=== PATIENT | female | born 1990 | race Caucasian/White ===

== ENCOUNTER 2017-08-20 15:06 | Emergency (ER) | payer MEDICAID ==
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
[2017-08-20] MEDS ORDERED: PERCOCET 5/325 PO ONE (20:08)
[2017-08-20] MEDS ORDERED: VALIUM PO ONE (20:08)
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
[2017-08-20] MEDS ORDERED: ZOFRAN ODT PO ONE (22:28)
[2017-08-20 23:42] VITALS: BP 118/70
== END 2017-08-21 00:50 | disposition other institution (70) ==
LOC: ED 15:06
DX: S02.19XA Other fracture of base of skull, initial encounter for closed fracture (principal); S16.1XXA Strain of muscle, fascia and tendon at neck level, initial encounter; S70.12XA Contusion of left thigh, initial encounter; G44.319 Acute post-traumatic headache, not intractable; R07.89 Other chest pain; M79.1 Myalgia; M25.50 Pain in unspecified joint; V44.5XXA Car driver injured in collision with heavy transport vehicle or bus in traffic accident, initial encounter; Y93.9 Activity, unspecified; Y99.9 Unspecified external cause status; Y92.410 Unspecified street and highway as the place of occurrence of the external cause
CPT/HCPCS: 70450; 71020; 71110; 72170; Q0162

== ENCOUNTER 2019-08-20 16:09 | Emergency (ER) | payer OTHER ==
--- NOTE | 2019-08-20 16:23 | Event Note ---
ED Screening Note Date of service: 08/20/19 Time: 16:19 ED Screening Note: This is a 29 y.o. F. that presents to the ER with chest pain and tingling in left arm since awakening. PMH of migraines and PCOS + nausea and SOB - fever, chills, cough, n/v She went to her PCP today and sent to ER for further evaluation. This initial assessment/diagnostic orders/clinical plan/treatment(s) is/are subject to change based on patients health status, clinical progression and re- assessment by fellow clinical providers in the ED. Further treatment and workup at subsequent clinical providers discretion. Patient/guardian urged not to elope from the ED as their condition may be serious if not clinically assessed and managed. Initial orders include: EKG, Labs, & CXR
[2019-08-20] MEDS ORDERED: ASPIRIN 325 MG TAB PO ONE (16:24)
[2019-08-20 16:56] LABS: Basophils # (Auto) 0.1 K/mm3 (0.0-0.1); Eosinophils # (Auto) 0.1 K/mm3 (0.0-0.4); Eosinophils % (Auto) 0.5 % (0.0-4.3); Hematocrit 41.3 % (30.3-42.9); Hemoglobin 13.6 gm/dl (10.1-14.3); Lymphocytes # (Auto) 2.7 K/mm3 (1.2-5.4); Lymphocytes % (Auto) 21.8 % (13.4-35.0); Mean Corpuscular HGB Conc 33 % (30-34); Mean Corpuscular Volume 80 fl (79-97); Monocytes # (Auto) 0.7 K/mm3 (0.0-0.8); Monocytes % (Auto) 5.5 % (0.0-7.3); Platelet Count 274 K/mm3 (140-440); Red Blood Count 5.15 M/mm3 (3.65-5.03); Red Cell Distribution Width 14.4 % (13.2-15.2)
[2019-08-20] MEDS ORDERED: cloNIDine 0.1 MG TAB PO ONE (17:02)
--- NOTE | 2019-08-20 17:11 | Emergency Department Report ---
HPI - General Chief Complaint: Chest Pain Time Seen by Provider: 08/20/19 16:19 - HPI HPI: 29 YO FEMALE COME TO ER CO L SIDED CP RAD DOWN HER LA WHILE AT WORK TODAY. SHE SAW HER PCP/REHABILITATION PSYCHOLOGIST WHO TOLD HER TO COME TO ER IN THE EVENT SHE WAS HAVING A CA; SHE'D BE IN A BETTER PLACE. PAIN IS LIKE AN "ELEPHANT," NO SOB, RAD TO LA. 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 NO N/V/DIAPHORESIS. DENIES THAT MOVEMENT MAKES BETTER DENIES COUGH/FEVER/CHILLS/N/V/DIARRHEA NO BACK PAIN/ NO DYSURIA NOT SEXUALLY ACTIVE NO VAG DC SHE HAS NO CARDIAC HISTORY. SHE IS ANXIOUS AND CONCERNED SHES HAVING A STROKE OR AMI - BECAUSE HER MOTHER DID PMH MIGRAINES ANEMAI PCOS PSH HERNIA T/A D/C LMP 3 W AGO HOME RX BCP-NOT SEXUALLY ACTIVE FE- SHE DOES NOT TAKE BECAUSE "LAZY" - SHE WAS ONCE TOLD SHE HAD ANEMIA DENIES CIG/ETOH/DRUGS HEART SCORE <2 ED Past Medical Hx - Past Medical History Previous Medical History?: Yes Hx Hypertension: No Hx CVA: No Hx Heart Attack/AMI: No Hx Congestive Heart Failure: No Hx Diabetes: Yes (GESTATIONAL ONLY) Hx Deep Vein Thrombosis: No Hx Pulmonary Embolism: No Hx GERD: No Hx Liver Disease: No Hx Renal Disease: No Hx of Cancer: No Hx Sickle Cell Disease: No Hx Arthritis: No Hx Headaches / Migraines: Yes Hx Seizures: No Hx Kidney Stones: No Hx Psychiatric Treatment: No Hx Asthma: No Hx COPD: No Hx Tuberculosis: No Hx Dementia: No Hx HIV: No Additional medical history: PCOS - Surgical History Past Surgical History?: Yes Additional Surgical History: Hernia repair. T/A. D/C - Family History Family history: other (FAM HX CVA/CAD) - Social History Smoking Status: Never Smoker Substance Use Type: None - Medications Home Medications: Home Medications Medication Instructions Recorded Confirmed Last Taken Type Pnv with Ca,No.72/Iron/FA 1 tab PO DAILY 11/01/15 11/02/15 11/01/15 20:30 History [ Plus Tablet] 1 TAB Nitrofurantoin [place]/M-Cryst 100 mg PO Q12HR #10 capsule 08/20/19 Unknown Rx [Macrobid CAP] ED Review of Systems ROS: Stated complaint: CHEST PAIN/SOB Other details as noted in HPI Comment: All other systems reviewed and negative Constitutional: denies: chills, fever Respiratory: denies: cough, orthopnea, shortness of breath Cardiovascular: as per HPI Gastrointestinal: denies: abdominal pain, nausea, vomiting Genitourinary: denies: urgency, dysuria Musculoskeletal: denies: back pain Skin: denies: rash, lesions Neurological: denies: headache, weakness Psychiatric: anxiety. denies: depression Hematological/Lymphatic: denies: easy bleeding Physical Exam - Physical Exam Vital Signs: Vital Signs 08/20/19 16:20 Temperature 98.2 F Pulse Rate 87 Respiratory 18 Rate Blood Pressure 177/102 [Left] O2 Sat by Pulse 99 Oximetry Physical Exam: ANXIOUS ALERT AND ORIENTED NO FOCAL DEF CN INTACT S1S2 NO TACHYCARDIA OR HYPOTENSION LUNGS CTA ABD SNT NO CVA TENDERNESS NO JVD NO EDEMA PERRL ED Course Vital Signs 08/20/19 16:20 Temperature 98.2 F Pulse Rate 87 Respiratory 18 Rate Blood Pressure 177/102 [Left] O2 Sat by Pulse 99 Oximetry ED Medical Decision Making - Lab Data Result diagrams: 08/20/19 16:35 08/20/19 16:35 - EKG Data -: EKG Interpreted by Nj EKG shows normal: sinus rhythm Rate: normal - EKG Data Interpretation: no acute changes, other (NORMAL AXIS; LATE TRANSITION AT V4) - Radiology Data Radiology results: report reviewed, image reviewed - Medical Decision Making Vital Signs 08/20/19 16:20 Temperature 98.2 F Pulse Rate 87 Respiratory 18 Rate Blood Pressure 177/102 [Left] O2 Sat by Pulse 99 Oximetry Labs 08/20/19 08/20/19 08/20/19 16:35 16:35 17:07 WBC 12.2 H RBC 5.15 H Hgb 13.6 Hct 41.3 MCV 80 MCH 27 L MCHC 33 RDW 14.4 Plt Count 274 Lymph % (Auto) 21.8 [place] % (Auto) 5.5 Eos % (Auto) 0.5 Baso % (Auto) 1.0 Lymph # 2.7 [place] # 0.7 Eos # 0.1 Baso # 0.1 Seg Neutrophils % 71.2 H Seg Neutrophils # 8.7 H D-Dimer 2606.39 H Sodium 140 Potassium 3.9 Chloride 100.7 Carbon Dioxide 23 Anion Gap 20 BUN 9 Creatinine 0.5 L Estimated GFR > 60 BUN/Creatinine Ratio 18 Glucose 92 Calcium 9.1 Troponin T < 0.010 Urine Color Urine Turbidity Urine pH Ur Specific [place] Urine Protein Urine Glucose (UA) Urine Ketones Urine Blood Urine Nitrite Ur Reducing Substances Urine Bilirubin Urine Ictotest Urine Urobilinogen Ur Leukocyte Esterase Urine WBC (Auto) Urine RBC (Auto) U Epithel Cells (Auto) Urine Bacteria (Auto) Urine Mucus Urine HCG, Qual 08/20/19 17:25 WBC RBC Hgb Hct MCV MCH MCHC RDW Plt Count Lymph % (Auto) [place] % (Auto) Eos % (Auto) Baso % (Auto) Lymph # [place] # Eos # Baso # Seg Neutrophils % Seg Neutrophils # D-Dimer Sodium Potassium Chloride Carbon Dioxide Anion Gap BUN Creatinine Estimated GFR BUN/Creatinine Ratio Glucose Calcium Troponin T Urine Color Yellow Urine Turbidity Slightly-cloudy Urine pH 6.0 Ur Specific [place] 1.013 Urine Protein <15 mg/dl Urine Glucose (UA) Neg Urine Ketones Neg Urine Blood Neg Urine Nitrite Neg Ur Reducing Substances Not Reportable Urine Bilirubin Neg Urine Ictotest Not Reportable Urine Urobilinogen < 2.0 Ur Leukocyte Esterase Sm Urine WBC (Auto) 7.0 H Urine RBC (Auto) 1.0 U Epithel Cells (Auto) 5.0 Urine Bacteria (Auto) 1+ Urine Mucus Few Urine HCG, Qual Negative BP RECHECK ON ADMIT TO [facility] [place] WAS NORMAL LABS NOTED [facility]- CT ANGIO HEAD CT NAP UA NOTED UPREG NEG [address] PLAN OF CARE. CT ANGIO RESULTS PENDING PT GIVEN EXTENSIVE EDUCATION ON LIFESTYLE MODIFICATION/DIET/EXERCISE/BLOOD PRE SSURE CT NEG FOR PE DC HOME WITH DC PLAN OF CARE AND PCP FOLLOW UP - Differential Diagnosis RO ACS/RO CVA/INFECTION/ANXIETY/PE Critical care attestation.: If time is entered above; I have spent that time in minutes in the direct care of this critically ill patient, excluding procedure time. ED Disposition Clinical Impression: UTI (urinary tract infection), Chest wall pain Disposition: DC-01 TO HOME OR SELFCARE Is pt being admited?: No Does the pt Need Aspirin: No Condition: Stable Instructions: Chest Pain (ED) Additional Instructions: CONTINUE HOME MEDS HYDRATE WELL WITH WATER FOLLOW UP WITH PCP FRIDAY TO BE SURE YOU ARE GETTING BETTER DIET AND ACTIVITY TOLERATED Prescriptions: Nitrofurantoin [place]/M-Cryst [Macrobid CAP] 100 mg PO Q12HR #10 capsule Referrals: PRIMARY CAREMD [Primary Care Provider] - 3-5 Days VALERIY PERRIN MD [Staff Physician] - 3-5 Days GISSELL STEEN MD [Staff Physician] - 3-5 Days Time of Disposition: 18:30
[2019-08-20 17:28] LABS: BUN/Creatinine Ratio 18; Blood Urea Nitrogen 9 mg/dL (7-17); Calcium 9.1 mg/dL (8.4-10.2); Hemolysis Index 4
[2019-08-20 17:43] LABS: HCG Qualitative,Urine Negative (Negative)
[2019-08-20 17:45] LABS: Bacteria,Urine 1+ /HPF (Negative); Bilirubin,Urine NEG (Negative); Blood,Urine NEG (Negative); Color,Urine Yellow (Yellow); Mucus,Urine FEW /HPF; Protein,Urine <15 mg/dL mg/dL (Negative); Urobilinogen,Urine < 2.0 mg/dL (<2.0)
--- NOTE | 2019-08-20 18:19 | Cat Scan Report ---
CT HEAD WITHOUT CONTRAST INDICATION / CLINICAL INFORMATION: HEADACHE. TECHNIQUE: All CT scans at this location are performed using CT dose reduction for ALARA by means of automated e xposure control. COMPARISON: None available. FINDINGS: HEMORRHAGE: No evidence of intracranial hemorrhage or extra-axial fluid collection. EXTRA-AXIAL SPACES: Cortical sulci, sylvian fissures and basilar cisterns have an unremarkable appear ance. VENTRICULAR SYSTEM: The ventricular system is of normal size and configuration. CEREBRAL PARENCHYMA: No areas of abnormal brain parenchymal attenuation are identified. There is no i ndication of recent infarction. MIDLINE SHIFT OR HERNIATION: There is no mass effect. CEREBELLUM / BRAINSTEM: Brainstem and cerebellum have an unremarkable appearance. INTRACRANIAL VESSELS:No abnormalities are identified on this noncontrast head CT. ORBITS: visualized portions of the orbits have an unremarkable appearance. SOFT TISSUES of HEAD: No significant abnormality. CALVARIUM: Evaluation of bone windows reveals no abnormalities. PARANASAL SINUSES / MASTOID AIR CELLS: Paranasal sinuses are free from inflammatory mucosal disease. Mastoid air cells are normally pneumatized. IMPRESSION: 1. No acute intracranial abnormality. Signer Name: Kingsley Barrow MD Signed: 08/20/2019 6:14 PM Workstation Name: [id number]
[2019-08-20] MEDS ORDERED: IBUPROFEN 800 MG TAB PO ONE (18:32)
--- NOTE | 2019-08-20 19:01 | Cat Scan Report ---
CT angio chest INDICATION: CHEST PAIN. TECHNIQUE: All CT scans at this location are performed using CT dose reduction for ALARA by means of automated e xposure control. Precontrast localizer images were obtained, followed by axial and 3-dimensional reconstruction images , performed at an independent workstation by the medical technologist chief after IV bolus contrast injection. COMPARISON: None available. FINDINGS: Mediastinum, matthias and axillae are negative. No pleural fluid. No significant parenchymal lesions. No evidence of pulmonary embolus. IMPRESSION: 1. Negative study. No pulmonary embolus. Signer Name: Clay Curry MD Signed: 08/20/2019 6:56 PM Workstation Name: [id number]
[2019-08-20 19:23] VITALS: BP 133/82
== END 2019-08-20 19:21 | disposition home or self-care (01) ==
LOC: ED 16:09
DX: N39.0 Urinary tract infection, site not specified (principal); R07.89 Other chest pain; G43.909 Migraine, unspecified, not intractable, without status migrainosus; Z86.2 Personal history of diseases of the blood and blood-forming organs and certain disorders involving the immune mechanism; Z98.890 Other specified postprocedural states
CPT/HCPCS: 36415; 70450; 71275; 80048; 81001; 81025; 84484; 85025; 85379; 93005; 93010; 99284; Q9967